=== PATIENT | female | born 1990 | race Hispanic/Latino ===

== ENCOUNTER 2018-04-23 10:06 | Emergency (ER) | payer SELFPAY ==
[~2018-04-23] VITALS: Ht 162.6 cm; Wt 95.3 kg
[2018-04-23] MEDS ORDERED: ALBUTEROL/IPRATROPIUM 3 ML NEB NEB ONE (10:30)
[2018-04-23] MEDS ORDERED: SODIUM CHLORIDE 0.9% 1000ML 1,000 ML IV STA (10:56)
--- NOTE | 2018-04-23 11:05 | Diagnostic Imaging Report ---
Examination: Single AP view of the chest. COMPARISON: None. INDICATION: Cough and chest pain DISCUSSION: The lungs are well-inflated. There is patchy airspace disease in the right lower lung zone. No pleural effusion or pneumothorax. Cardiomediastinal contour and pulmonary vasculature are within normal limits when accounting for portable, AP technique. No acute osseous abnormality. IMPRESSION: Patchy right lower lung airspace disease may reflect atelectasis or developing pneumonia in the clinical setting of productive cough. Follow-up chest radiograph in 8 weeks is suggested to document resolution. Signed by: Dr. Ousmane Packer M.D. on 04/23/2018 11:02 AM
[2018-04-23 11:45] LABS: BASOPHILS # (AUTO) 0.1 (0.0-0.1); BASOPHILS % 0.4 % (0.0-1.0); EOSINOPHILS # (AUTO) 0.3 (0.0-0.4); EOSINOPHILS % 2.3 % (0.0-6.0); HEMATOCRIT 41.2 % (34.2-44.1); LYMPHOCYTES # (AUTO) 1.8 (1.0-3.2); LYMPHOCYTES % 13.7 % (18.0-39.1); MEAN CORPUSCULAR HEMOGLOBIN 28.9 pg (28-32); MEAN CORPUSCULAR VOLUME 85.1 fL (81-99); MONOCYTES # (AUTO) 0.7 (0.2-0.8); MONOCYTES % 5.6 % (4.4-11.3); NEUTROPHILS # (AUTO) 10.2 (2.1-6.9); NEUTROPHILS % 77.5 % (38.7-80.0); PLATELET COUNT 252 x10e3/uL (140-360); RED BLOOD COUNT 4.84 x10e6/uL (3.6-5.1); RED CELL DISTRIBUTION WIDTH 13.5 % (11.7-14.4)
[2018-04-23 11:56] LABS: INR 1.13; PROTHROMBIN TIME 13.6 seconds (11.9-14.5)
[2018-04-23 11:57] LABS: PARTIAL THROMBOPLASTIN TIME 30.2 seconds (23.8-35.5)
[2018-04-23 12:08] LABS: ALANINE AMINOTRANSFERASE 15 IU/L (0-55); ALBUMIN 4.1 g/dL (3.5-5.0); ALBUMIN/GLOBULIN RATIO 1.1 (0.8-2.0); ALKALINE PHOSPHATASE 101 IU/L (40-150); ANION GAP 14.4 mmol/L (8-16); BLOOD UREA NITROGEN 10 mg/dL (7-26); BUN/CREATININE RATIO 11 (6-25); CALCIUM 9.8 mg/dL (8.4-10.2); CARBON DIOXIDE 21 mmol/L (22-29); CHLORIDE 103 mmol/L (98-107); EST GLOMERULAR FILTRATION RATE > 60 ML/MIN (60-); GLUCOSE 102 mg/dL (74-118); POTASSIUM 3.4 mmol/L (3.5-5.1); SODIUM 135 mmol/L (136-145)
[2018-04-23] MEDS ORDERED: ALBUTEROL SULF 0.083% NEB SOLN 3 ML NEB NEB STA (12:21)
[2018-04-23] MEDS ORDERED: CEFTRIAXONE SOD 1 GM VIAL IV STA (12:21)
[2018-04-23] MEDS ORDERED: ALBUTEROL SULF 0.083% NEB SOLN 3 ML NEB ONE (12:27)
[2018-04-23] MEDS ORDERED: IPRATROPIUM BROMIDE 0.02% 2.5 ML NEB ONE (12:28)
[2018-04-23] MEDS: IPRATROPIUM BROMIDE 0.02% 2.5 ML NEB NEB ONE ×2 (12:30→14:14)
[2018-04-23 14:16] VITALS: BP 128/85
== END 2018-04-23 14:22 | disposition home or self-care (01) ==
LOC: ER 10:06
DX: R05 Cough (principal); J15.9 Unspecified bacterial pneumonia
CPT/HCPCS: 36415; 71045; 80053; 84702; 85025; 85379; 85610; 85730; 93005; 94640 ×2; 99284; J0696; J7030